=== PATIENT | female | born 1990 | race African-American/Black ===

== ENCOUNTER 2018-02-01 23:05 | Emergency (ER) | payer BC ==
[~2018-02-01] VITALS: Ht 160 cm; Wt 81.7 kg
[~2018-02-01 23:05] MED LIST: AMOCLA875 PO; CALCA500CH PO; CEPH500 PO; CRUTCH3 USE; CYCL10 PO; Cyclobenzaprine5 MG PO; Esgic Tablet1 EACH PO; HYDACE5 PO; IBUP600 PO; IBUP800 PO; IRON150C PO; LIDO700A20 TOP; MEDR150I; METO10 PO; METR500 PO; MULVITMINE PO; NAPR500 PO; Naprosyn500 MG PO; Norco 5-325 Ta1 EACH PO; OMEP20ER PO; ONDA4ODT MM; ONDA8ODT MM; ORTHO-CYCLEN 21 EACH PO; ORTHOCYCLINE; OXYACE5T PO; PRENATA CHEWAB1 EACH PO; PROG100 PO; PROM25 PO; PROM25S PR; Pepcid40 MG PO; Percocet 5-3251 EACH PO; Prilosec20 MG PO; Protonix40 MG PO; RANI150 PO; RXCODACET PO; RXOXYACE PO; SULTRIDS PO; TRAM50 PO; TRIA80TC TOP; Ultram50 MG PO; Zofran Odt4 MG SL; [UNRECOGNIZED DRUG - REMARK]
[2018-02-02] MEDS ORDERED: TRAM50 PO (00:33)
[2018-02-02] MEDS ORDERED: Prednisone20 MG PO (00:33)
[2018-10-05] MEDS ORDERED: Cleocin HCl300 MG PO (17:05)
== END 2018-02-02 01:19 | disposition home or self-care (01) ==
LOC: ER 23:05
DX: S46.911A Strain of unspecified muscle, fascia and tendon at shoulder and upper arm level, right arm, initial encounter (principal); M53.3 Sacrococcygeal disorders, not elsewhere classified; Z88.5 Allergy status to narcotic agent; X58.XXXA Exposure to other specified factors, initial encounter
CPT/HCPCS: 99283

== ENCOUNTER 2018-09-19 11:12 | Emergency (ER) | payer SELFPAY ==
[~2018-09-19] VITALS: Ht 160 cm; Wt 83.9 kg
[~2018-09-19 11:12] MED LIST changes: +Prednisone20 MG PO
== END 2018-09-19 11:46 | disposition home or self-care (01) ==
LOC: ER 11:12
DX: K11.5 Sialolithiasis (principal); Z88.5 Allergy status to narcotic agent; Z79.52 Long term (current) use of systemic steroids; G43.909 Migraine, unspecified, not intractable, without status migrainosus; Z87.891 Personal history of nicotine dependence
CPT/HCPCS: 99282

== ENCOUNTER 2018-09-22 11:09 | Emergency (ER) | payer SELFPAY ==
[~2018-09-22] VITALS: Ht 160 cm; Wt 83.9 kg
[2018-09-22] MEDS ORDERED: Augmentin 875-1 EACH PO (13:09)
[2018-09-22] MEDS ORDERED: Percocet 5-3251 EACH PO (14:33)
== END 2018-09-22 14:57 | disposition home or self-care (01) ==
LOC: ER 11:09
DX: K11.20 Sialoadenitis, unspecified (principal); Z88.5 Allergy status to narcotic agent; G43.909 Migraine, unspecified, not intractable, without status migrainosus; Z87.891 Personal history of nicotine dependence
CPT/HCPCS: 70491; 96361; 96374; 99283-25; J1885; J7120; Q9967

== ENCOUNTER 2022-10-11 10:07 | Emergency (ER) | payer OTHER ==
[~2022-10-11] VITALS: Ht 160 cm; Wt 79.8 kg
[~2022-10-11 10:07] MED LIST changes: +Adipex-P37.5 M1; +Augmentin 875-1 EACH PO; +Cleocin HCl300 MG PO; +EUTHYROX125 MC1 PO; +LEVSOD75 PO; +TOPI25 PO; +TRAM50
[2022-10-11 11:20] LABS: BASOPHILS ABSOLUTE AUTO 0.05 K/mm3 (0.00-0.23); BASOPHILS PERCENT AUTO 1 % (0-2); EOSINOPHILS ABSOLUTE AUTO 0.04 K/mm3 (0.00-0.68); EOSINOPHILS PERCENT AUTO 1 % (0-6); Hematocrit 38.3 % (33.0-51.0); Hemoglobin 12.3 g/dL (11.5-16.0); IMMATURE GRAN PERCENT AUTO 0 % (0-1); LYMPHOCYTES ABSOLUTE AUTO 1.88 K/mm3 (0.84-5.20); LYMPHOCYTES PERCENT AUTO 41 % (21-46); MONOCYTES ABSOLUTE AUTO 0.43 K/mm3 (0.16-1.47); MONOCYTES PERCENT AUTO 9 % (4-13); Mean Corpuscular HGB 29.4 pg (26.0-34.0); Mean Corpuscular HGB Conc 32.1 g/dL (31.5-36.5); Mean Corpuscular Volume 91 fL (80-100); NEUTROPHILS ABSOLUTE AUTO 2.21 K/mm3 (1.96-9.15); NEUTROPHILS PERCENT AUTO 48 % (41-73); Platelet Count 344 K/mm3 (150-400); RDW Coefficient Variation 14.7 % (11.7-14.2); RDW Standard Deviation 49.6 fL (35.1-46.3); Red Blood Cell Count 4.19 M/mm3 (3.80-5.20); White Blood Cell Count 4.61 K/mm3 (4.00-11.30)
[2022-10-11 11:22] LABS: Source, Urine Clean Catch
[2022-10-11 11:38] LABS: Bilirubin, Urine Neg (Neg); Blood, Urine 4+ (Neg); Glucose Qualitative, Urine Neg (Neg); Ketones, Urine 1+ (Neg); Leukocyte Esterase, Urine 1+ (Neg); Nitrite, Urine Neg (Neg); Protein, Urine 1+ (Neg); Specific Gravity, Urine 1.025 (1.003-1.022); Urobilinogen, Urine 1+ (Normal)
[2022-10-11 11:48] LABS: Creatinine, Blood 0.78 mg/dL (0.40-1.00); Potassium, Blood 3.9 mmol/L (3.5-5.5)
[2022-10-11 11:56] LABS: Appearance, Urine Hazy (Clear); Color, Urine Yellow (P-Yellow)
[2022-10-11 12:01] LABS: Bacteria Mod /hpf; Mucus Mod (0-Heavy); Squamous Epithelial Cells Few /hpf (Few)
[2022-10-11] MEDS ORDERED: CEPH500 PO (13:46)
== END 2022-10-11 14:32 | disposition home or self-care (01) ==
LOC: ER 10:07
PROVIDERS: Physician Assistant
DX: O20.0 Threatened abortion (principal); O23.41 Unspecified infection of urinary tract in pregnancy, first trimester; N39.0 Urinary tract infection, site not specified; Z3A.08 8 weeks gestation of pregnancy; Z88.5 Allergy status to narcotic agent; Z79.890 Hormone replacement therapy; Z79.899 Other long term (current) drug therapy; Z87.891 Personal history of nicotine dependence
CPT/HCPCS: 36415; 76801; 76817; 80048; 81001; 84702; 85025; 86900; 86901; 87077; 87086; 87186; J7030

== ENCOUNTER 2023-04-08 16:26 | Emergency (ER) | payer OTHER ==
[~2023-04-08] VITALS: Ht 160 cm; Wt 79.4 kg
[2023-04-08 16:31] VITALS: BP 125/78
[2023-04-08] MEDS ORDERED: BENZ100A PO (18:11)
== END 2023-04-08 18:15 | disposition home or self-care (01) ==
LOC: ER 16:26
DX: J20.9 Acute bronchitis, unspecified (principal); Z88.5 Allergy status to narcotic agent; Z79.899 Other long term (current) drug therapy; Z87.891 Personal history of nicotine dependence
CPT/HCPCS: 71046; 99283-25

== ENCOUNTER 2023-10-29 14:06 | Emergency (ER) | payer OTHER ==
[~2023-10-29] VITALS: Ht 160 cm; Wt 92.1 kg
[~2023-10-29 14:06] MED LIST changes: +BENZ100A PO
[2023-10-29 14:45] LABS: BASOPHILS ABSOLUTE AUTO 0.03 K/mm3 (0.00-0.23); BASOPHILS PERCENT AUTO 0 % (0-2); EOSINOPHILS ABSOLUTE AUTO 0.07 K/mm3 (0.00-0.68); EOSINOPHILS PERCENT AUTO 1 % (0-6); Hematocrit 27.1 % (33.0-51.0); IMMATURE GRAN ABSOLUTE AUTO 0.07 K/mm3 (0.00-0.10); IMMATURE GRAN PERCENT AUTO 1 % (0-1); LYMPHOCYTES ABSOLUTE AUTO 1.56 K/mm3 (0.84-5.20); LYMPHOCYTES PERCENT AUTO 19 % (21-46); MONOCYTES ABSOLUTE AUTO 0.72 K/mm3 (0.16-1.47); MONOCYTES PERCENT AUTO 9 % (4-13); Mean Corpuscular HGB 28.3 pg (26.0-34.0); Mean Corpuscular HGB Conc 33.2 g/dL (31.5-36.5); Mean Corpuscular Volume 85 fL (80-100); Mean Platelet Volume 9.6 fL (9.1-12.4); NEUTROPHILS ABSOLUTE AUTO 5.61 K/mm3 (1.96-9.15); NEUTROPHILS PERCENT AUTO 70 % (41-73); Platelet Count 285 K/mm3 (150-400); RDW Coefficient Variation 14.5 % (11.7-14.2); RDW Standard Deviation 45.1 fL (35.1-46.3); Red Blood Cell Count 3.18 M/mm3 (3.80-5.20); White Blood Cell Count 8.06 K/mm3 (4.00-11.30)
[2023-10-29 15:18] LABS: Albumin, Blood 2.5 g/dL (3.4-5.0); Albumin/Globulin Ratio 0.6 (0.8-1.8); Bilirubin, Total 0.3 mg/dL (0.1-1.0); Bun/Creatinine Ratio 8.2 (12.0-20.0); Calcium, Blood 8.7 mg/dL (8.5-10.1); Creatinine, Blood 0.49 mg/dL (0.40-1.00); Globulin, Blood 4.5 g/dL (2.2-4.0); Potassium, Blood 3.2 mmol/L (3.5-5.5); Thyroid Stimulating Hormone 2.2 uIU/mL (0.360-4.800)
[2023-10-29 16:30] VITALS: BP 110/75
== END 2023-10-29 16:53 | disposition home or self-care (01) ==
LOC: ER 14:06
PROVIDERS: Physician Assistant
DX: O26.892 Other specified pregnancy related conditions, second trimester (principal); O99.012 Anemia complicating pregnancy, second trimester; O99.282 Endocrine, nutritional and metabolic diseases complicating pregnancy, second trimester; R00.2 Palpitations; D64.9 Anemia, unspecified; E87.6 Hypokalemia; Z3A.26 26 weeks gestation of pregnancy; Z88.5 Allergy status to narcotic agent; Z79.890 Hormone replacement therapy; Z79.899 Other long term (current) drug therapy; Z87.891 Personal history of nicotine dependence
CPT/HCPCS: 80053; 83735; 84443; 85025; 93005; 93010; 93246; 99284; A9270

== ENCOUNTER 2025-01-16 11:05 | Emergency (ER) | payer OTHER ==
[~2025-01-16] VITALS: Ht 160 cm; Wt 92.5 kg
[2025-01-16 11:20] VITALS: BP 134/99
[2025-01-16 11:37] LABS: BASOPHILS ABSOLUTE AUTO 0.03 K/mm3 (0.00-0.23); BASOPHILS PERCENT AUTO 1 % (0-2); EOSINOPHILS ABSOLUTE AUTO 0.07 K/mm3 (0.00-0.68); EOSINOPHILS PERCENT AUTO 2 % (0-6); Hematocrit 40.6 % (33.0-51.0); Hemoglobin 13.5 g/dL (11.5-16.0); IMMATURE GRAN ABSOLUTE AUTO 0.01 K/mm3 (0.00-0.10); IMMATURE GRAN PERCENT AUTO 0 % (0-1); LYMPHOCYTES ABSOLUTE AUTO 1.61 K/mm3 (0.84-5.20); LYMPHOCYTES PERCENT AUTO 34 % (21-46); MONOCYTES ABSOLUTE AUTO 0.31 K/mm3 (0.16-1.47); MONOCYTES PERCENT AUTO 7 % (4-13); Mean Corpuscular HGB 29.9 pg (26.0-34.0); Mean Corpuscular HGB Conc 33.3 g/dL (31.5-36.5); Mean Corpuscular Volume 90 fL (80-100); Mean Platelet Volume 10.1 fL (9.1-12.4); NEUTROPHILS ABSOLUTE AUTO 2.67 K/mm3 (1.96-9.15); NEUTROPHILS PERCENT AUTO 57 % (41-73); Platelet Count 309 K/mm3 (150-400); RDW Coefficient Variation 14.5 % (11.7-14.2); RDW Standard Deviation 47.8 fL (35.1-46.3); Red Blood Cell Count 4.51 M/mm3 (3.80-5.20)
[2025-01-16 11:50] LABS: Source, Urine Clean Catch
[2025-01-16 12:06] LABS: Albumin, Blood 3.8 g/dL (3.4-5.0); Albumin/Globulin Ratio 0.8 (0.8-1.8); Bilirubin, Total 0.3 mg/dL (0.1-1.0); Bun/Creatinine Ratio 7.6 (12.0-20.0); Calcium, Blood 9.4 mg/dL (8.5-10.1); Creatinine, Blood 0.79 mg/dL (0.40-1.00); Globulin, Blood 4.5 g/dL (2.2-4.0); Potassium, Blood 3.5 mmol/L (3.5-5.5); Total Protein, Blood 8.3 g/dL (6.4-8.2)
[2025-01-16 12:29] LABS: Appearance, Urine Clear (Clear); Blood, Urine 1+ (Neg); Color, Urine Yellow (P-Yellow); Glucose Qualitative, Urine Neg (Neg); Ketones, Urine Neg (Neg); Leukocyte Esterase, Urine 2+ (Neg); Nitrite, Urine Neg (Neg); Protein, Urine 2+ (Neg); Specific Gravity, Urine 1.015 (1.003-1.022); Urobilinogen, Urine 2+ (Normal)
[2025-01-16 13:11] LABS: Bilirubin, Urine 1+ (Neg)
[2025-01-16 13:12] LABS: Amorphous Light (0-Heavy); Bacteria Many /hpf; Mucus Heavy (0-Heavy); Squamous Epithelial Cells Many /hpf (Few)
[2025-01-16 13:13] LABS: Calcium Oxalate Crystals Few /hpf; Red Blood Cells, Urine 0-2 /hpf (0-2)
[2025-01-16] MEDS ORDERED: NITR100CA PO (14:02)
[2025-01-16] MEDS ORDERED: SULTRIDS PO (14:09)
== END 2025-01-16 14:20 | disposition home or self-care (01) ==
LOC: ER 11:05
PROVIDERS: Student in an Organized Health Care Education/Training Program
DX: N30.90 Cystitis, unspecified without hematuria (principal); Z88.5 Allergy status to narcotic agent; Z79.899 Other long term (current) drug therapy; Z87.891 Personal history of nicotine dependence
CPT/HCPCS: 80053; 81001; 83690; 85025; 87077; 87086; 87186; 99284

== ENCOUNTER 2025-09-26 00:21 | Observation (INO) | payer OTHER ==
[2025-09-26] VITALS (19 sets, daily range): BP systolic 108–145; BP diastolic 70–109
[~2025-09-26] VITALS: Ht 160 cm; Wt 65.8 kg
[~2025-09-26 00:21] MED LIST changes: +NITR100CA PO
[2025-09-26] MEDS ORDERED: Ondansetron HCl 2 MG / ML 2ML Vial IV ONE (00:35)
[2025-09-26] MEDS ORDERED: Morphine Sulfate 4 MG/1 ML Injection IV ONE ×2 (01:40→03:30)
[2025-09-26 01:42] LABS: BASOPHILS ABSOLUTE AUTO 0.03 K/mm3 (0.00-0.23); BASOPHILS PERCENT AUTO 0 % (0-2); EOSINOPHILS ABSOLUTE AUTO 0.02 K/mm3 (0.00-0.68); EOSINOPHILS PERCENT AUTO 0 % (0-6); Hematocrit 35.4 % (33.0-51.0); Hemoglobin 11.7 g/dL (11.5-16.0); IMMATURE GRAN ABSOLUTE AUTO 0.04 K/mm3 (0.00-0.10); IMMATURE GRAN PERCENT AUTO 1 % (0-1); LYMPHOCYTES ABSOLUTE AUTO 0.62 K/mm3 (0.84-5.20); LYMPHOCYTES PERCENT AUTO 9 % (21-46); MONOCYTES ABSOLUTE AUTO 0.23 K/mm3 (0.16-1.47); MONOCYTES PERCENT AUTO 3 % (4-13); Mean Corpuscular HGB Conc 33.1 g/dL (31.5-36.5); Mean Corpuscular Volume 92 fL (80-100); NEUTROPHILS ABSOLUTE AUTO 5.84 K/mm3 (1.96-9.15); NEUTROPHILS PERCENT AUTO 86 % (41-73); NRBC ABSOLUTE 0.00 K/mm3 (0.00-0.02); NRBC Auto 0.0 /100 WBC (0.0-0.2); Platelet Count 301 K/mm3 (150-400); RDW Coefficient Variation 13.9 % (11.7-14.2); RDW Standard Deviation 47.5 fL (35.1-46.3)
[2025-09-26 01:50] LABS: Alanine Aminotransfer (ALT/SGP 198.0 U/L (12-78); Albumin, Blood 3.4 g/dL (3.4-5.0); Albumin/Globulin Ratio 0.9 (0.8-1.8); Anion Gap 6.0 mmol/L (3-11); Aspartate Aminotrans (AST/SGOT 434.0 U/L (12-37); Bilirubin, Total 1.1 mg/dL (0.1-1.0); Blood Urea Nitrogen 8.0 mg/dL (8-24); CO2, Blood 28.0 mmol/L (21-32); Calcium, Blood 9.3 mg/dL (8.5-10.1); Chloride, Blood 112.0 mmol/L (98-108); Creatinine, Blood 0.61 mg/dL (0.40-1.00); Globulin, Blood 3.8 g/dL (2.2-4.0); Glucose, Blood 112.0 mg/dL (70-99); Magnesium, Blood 2.3 mg/dL (1.6-2.4); Potassium, Blood 3.4 mmol/L (3.5-5.5); Sodium, Blood 143.0 mmol/L (136-145); Total Protein, Blood 7.2 g/dL (6.4-8.2)
[2025-09-26] MEDS ORDERED: Piperacillin/Tazobactam Sod 4.5 GM in NS 100 ML IV ONE (03:45)
[2025-09-26] MEDS ORDERED: FLU VACC TS2025-26(6MOS UP)/PF 45 MCG/0.5 ML SYRINGE IM SCH (04:30)
[2025-09-26] MEDS ORDERED: Morphine Sulfate 4 MG/1 ML Injection IV PRN ×3 (04:55→12:20)
[2025-09-26] MEDS ORDERED: Potassium Chloride 10 Meq Tablet SA PO ONE (05:00)
--- NOTE | 2025-09-26 05:40 | NUR ---
PT TO ROOM 226 FROM ED; PT AMBULATORY AND VOIDED. PT UA SENT TO LAB. PT ADMISSION HX COMPLETE. PT ORIENTED TO ROOM AND IS NPO IN ANTICIPATION OF SURGERY TODAY.
[2025-09-26 06:07] LABS: Source, Urine Clean Catch
[2025-09-26 06:14] LABS: Bilirubin, Urine Neg (Neg); Color, Urine Yellow (P-Yellow); Glucose Qualitative, Urine Neg (Neg); Ketones, Urine Neg (Neg); Leukocyte Esterase, Urine Neg (Neg); Protein, Urine Neg (Neg); Specific Gravity, Urine 1.010 (1.003-1.022); Urobilinogen, Urine NORM (Normal)
[2025-09-26 06:20] LABS: Red Blood Cells, Urine 0-2 /hpf (0-2); White Blood Cells, Urine Not Seen /hpf (0-5)
[2025-09-26] MEDS ORDERED: CefTRIAXone Sodium 1,000 MG in NS 100 ML IV SCH (10:45)
--- NOTE | 2025-09-26 10:49 | NUR ---
History, Chart, Medications and Allergies reviewed before start of procedure. Pre-Op teaching done. Pt verbalizes understanding. Patient confirms NPO status and agrees with scheduled surgery.
[2025-09-26] MEDS ORDERED: Bupivacaine 0.5% HCl 5 MG/ML 30MLVIAL ONE (11:50)
[2025-09-26] MEDS ORDERED: FentaNYL Citrate 50 MCG/ML 2 ML Injection ONE (12:07)
[2025-09-26] MEDS ORDERED: Ondansetron HCl 2 MG / ML 2ML Vial ONE ×2 (12:10→13:52)
[2025-09-26] MEDS ORDERED: Dexamethasone Sod Phos 10 MG/ML 1ML VIAL ONE (12:10)
[2025-09-26] MEDS ORDERED: Ketorolac Tromethamine 30mg Vial ONE ×2 (12:15→12:20)
[2025-09-26] MEDS ORDERED: Rocuronium Bromide 10 MG/ML 5ML Injection IV ONE (12:16)
[2025-09-26] MEDS ORDERED: FentaNYL Citrate 50 MCG/ML 2 ML Injection IV PRN ×2 (12:20→15:40)
[2025-09-26] MEDS ORDERED: Albuterol 2.5 MG/3 ML VIAL INH PRN (12:20)
[2025-09-26] MEDS ORDERED: Ondansetron HCl 2 MG / ML 2ML Vial IV PRN ×2 (12:20→22:10)
[2025-09-26] MEDS ORDERED: ePHEDrine Sulfate 50 MG/ML 1ML Injection IV PRN (12:20)
[2025-09-26] MEDS ORDERED: Sugammadex Sodium 200 MG/2ML SDV (100 MG/ML) ONE (13:03)
[2025-09-26] MEDS ORDERED: Ketorolac Tromethamine 30mg Vial IV PRN (13:30)
[2025-09-26] MEDS ORDERED: Morphine Sulfate 4 MG/1 ML Injection ONE ×2 (13:33→13:46)
--- NOTE | 2025-09-26 14:15 | NUR ---
POST OP RETURN TO SURGICAL UNIT VIA [facility]ICA[facility] GUAJARDO TO HOSPITAL BED. ALERT, ORIENTED. PANTING & CRYING IN PAIN. ABD SOFT w/ LAP SITES x 4 COVERED w/ GAUZE/TEGADERM. DENIES NAUSEA BUT REPORTS PRESSURE TO ABD. PAIN IS SHARP & UNDER RIBS, SHOULDER, & ABD. K-PAD GIVEN.
[2025-09-26] MEDS ORDERED: OxyCODONE 5 mg/Acetamin 325 mg TABLET PO PRN (15:45)
--- NOTE | 2025-09-26 19:40 | NUR ---
SHIFT SUMMARY INITIALLY WAS VERY ANXIOUS & PAINFUL POST OP BUT FEELING BETTER NOW AFTER AMBULATED IN HALLWAY. TAKING IN SIPS OF WATER BUT FEARFUL OF BECOMING NAUSEATED SO HASN'T ATTEMPTED SOLID FOOD.
[2025-09-26] MEDS ORDERED: HYDROmorphone HCl/Pf 1MG SYR IV PRN (23:20)
[2025-09-26] MEDS ORDERED: Metoclopramide HCl 5MG / ML 2ML Vial IV PRN (23:20)
--- NOTE | 2025-09-27 03:50 | NUR ---
SHIFT SUMMARY PT S/P LAP APPY. PT VERY PAINFUL AT THE START OF THE SHIFT. PT REPORTS SHARP PAINS IN ABD, WELL GAS PAIN IN HER SHOULDER, UNDER RIBS. HIGHEST PAIN RATING 9/10. PT REQUIRED SEVERAL PRNS. TORADOL, FENTANYL, AND PERCOCET WERE INEFFECTIVE FOR PAIN CONTROL. NOTIFIED AND IV DILAUDID WAS ORDERED, WHICH WAS EFFECTIVE IN CONTROLING PAIN. PT ALSO HAS HAD NAUSEA WITH EMESIS WHICH REQUIRED ZOFRAN AND REGLAN. PT HAS RESTED AFTER DILAUDID AND REGLAN. EYES CLOSED WITH CHEST RISE AND FALL. PT ENCOURAGED TO AMBULATE TO HELP WITH GAS PAIN AND SHE HAS DONE SO. VITALS ARE STABLE. SURGICAL SITE WNL. BED IN LOWEST POSITION, CALL LIGHT WITHIN REACH.
[2025-09-27 04:56] LABS: BASOPHILS ABSOLUTE AUTO 0.01 K/mm3 (0.00-0.23); BASOPHILS PERCENT AUTO 0 % (0-2); EOSINOPHILS ABSOLUTE AUTO 0.00 K/mm3 (0.00-0.68); EOSINOPHILS PERCENT AUTO 0 % (0-6); Hematocrit 30.4 % (33.0-51.0); Hemoglobin 10.2 g/dL (11.5-16.0); IMMATURE GRAN ABSOLUTE AUTO 0.02 K/mm3 (0.00-0.10); IMMATURE GRAN PERCENT AUTO 0 % (0-1); LYMPHOCYTES ABSOLUTE AUTO 1.10 K/mm3 (0.84-5.20); LYMPHOCYTES PERCENT AUTO 14 % (21-46); MONOCYTES ABSOLUTE AUTO 0.36 K/mm3 (0.16-1.47); MONOCYTES PERCENT AUTO 5 % (4-13); Mean Corpuscular HGB Conc 33.6 g/dL (31.5-36.5); Mean Corpuscular Volume 89 fL (80-100); NEUTROPHILS ABSOLUTE AUTO 6.13 K/mm3 (1.96-9.15); NEUTROPHILS PERCENT AUTO 81 % (41-73); NRBC ABSOLUTE 0.00 K/mm3 (0.00-0.02); NRBC Auto 0.0 /100 WBC (0.0-0.2); Platelet Count 262 K/mm3 (150-400); RDW Coefficient Variation 14.1 % (11.7-14.2); RDW Standard Deviation 46.2 fL (35.1-46.3)
[2025-09-27 05:29] LABS: Alanine Aminotransfer (ALT/SGP 292.0 U/L (12-78); Albumin, Blood 2.9 g/dL (3.4-5.0); Albumin/Globulin Ratio 0.9 (0.8-1.8); Anion Gap 9.0 mmol/L (3-11); Aspartate Aminotrans (AST/SGOT 247.0 U/L (12-37); Bilirubin, Total 0.8 mg/dL (0.1-1.0); Blood Urea Nitrogen 9.0 mg/dL (8-24); CO2, Blood 25.0 mmol/L (21-32); Calcium, Blood 8.6 mg/dL (8.5-10.1); Chloride, Blood 109.0 mmol/L (98-108); Creatinine, Blood 0.72 mg/dL (0.40-1.00); Globulin, Blood 3.2 g/dL (2.2-4.0); Glucose, Blood 118.0 mg/dL (70-99); Potassium, Blood 3.5 mmol/L (3.5-5.5); Sodium, Blood 139.0 mmol/L (136-145); Total Protein, Blood 6.1 g/dL (6.4-8.2)
[2025-09-27 05:36] VITALS: BP 111/72
[2025-09-27 07:59] VITALS: BP 107/71
[2025-09-27] MEDS ORDERED: Percocet 5-3251 EACH PO (10:23)
--- NOTE | 2025-09-27 11:35 | NUR ---
DISCHARGE FEELS MUCH BETTER TODAY. TOLERATING BITES & DRINKING WATER. ABD SOFT & PASSING GAS. AMBULATES EASILY. Rx GIVEN w/ EDUCATION. ESCORTED OUT VIA WC.
== END 2025-09-27 11:35 | disposition home or self-care (01) ==
LOC: ER 00:21 → SURS 00:22
PROVIDERS: Emergency Medicine; Family Medicine; Surgery; ADMIT Student in an Organized Health Care Education/Training Program
PROC: BF13YZZ Fluoroscopy of Gallbladder and Bile Ducts using Other Contrast (ICD-10-PCS; principal; 2025-09-26 10:30)
PROC: 0FT44ZZ Resection of Gallbladder, Percutaneous Endoscopic Approach (ICD-10-PCS; principal; 2025-09-26 10:30)
DX: K80.12 Calculus of gallbladder with acute and chronic cholecystitis without obstruction (principal); E03.9 Hypothyroidism, unspecified; E87.6 Hypokalemia; Z88.5 Allergy status to narcotic agent; Z79.890 Hormone replacement therapy; Z87.891 Personal history of nicotine dependence
CPT/HCPCS: 36415; 74177; 74300; 76705; 80053; 81001; 81025; 83690; 83735; 85025; 88304; 96365-59; 96374-59; 96375; 96376; 99285-25; A9270; C1729; G0378; J1100; J1171; J1885; J2270; J2405; J2543; J2704; J2765; J3010; J7120; Q9967